=== PATIENT | female | born 1985 | race Caucasian/White ===

== ENCOUNTER 2019-08-12 18:04 | Emergency (ER) | payer MEDICAID ==
[~2019-08-12] VITALS: Ht 165.1 cm; Wt 88.0 kg
[2019-08-12 18:24] VITALS: BP 116/77
--- NOTE | 2019-08-12 18:28 | NUR ---
PT TO RESTROOM
--- NOTE | 2019-08-12 19:06 | NUR ---
RONA ARIZA WITH PT
[2019-08-12] MEDS ORDERED: ALBUTEROL SULFATE/IPRATROPIU 3 ML SOL IH ONE (19:10)
[2019-08-12] MEDS ORDERED: DEXAMETHASONE 10 MG/ML VIAL IM ONE (19:10)
--- NOTE | 2019-08-12 19:13 | NUR ---
INFLUENZA SWAB COLLECTED
--- NOTE | 2019-08-12 19:18 | NUR ---
34 Y/O F C/O COUGHING AND VAGINAL DISCHARGE X1 DAY. PT STATES SHE HAS A SORE THROAT WITH COUGHING. LUNG SOUNDS CLEAR THROUGHOUT, THROAT IS NOT RED, NO SWELLING OR DRAINAGE. PT STATES SHE HAS VAGINAL DISCHARGE THAT STARTED X1 DAY WELL. PT POSITIONED FOR COMFORT. MANNY
--- NOTE | 2019-08-12 19:22 | NUR ---
Respiratory Therapist at bedside for respiratory intervention.
--- NOTE | 2019-08-12 19:24 | NUR ---
RT AT BEDSIDE PERFORMING BREATHING TREATMENT.
--- NOTE | 2019-08-12 19:57 | NUR ---
PT STATES EASIER WORK OF BREATHING S/P BREATHING TREATMENT. LUNG URIAS CLEAR THROUGHOUT UPON AUSCULTATION. RR EVEN AND UNLABORED.
[2019-08-12 20:30] VITALS: BP 116/77
--- NOTE | 2019-08-12 20:31 | NUR ---
Patient discharged with v/s stable. Written and verbal after care instructions given and explained. Patient alert, oriented and verbalized understanding of instructions. Ambulatory with steady gait. All questions addressed prior to discharge. ID band removed. Patient advised to follow up with PMD. Rx of TAMIFLU, TESSALON PERLES, METRONIDAZOLE, MEDROL DESEPAK given. Patient educated on indication of medication including possible reaction and side effects. Opportunity to ask questions provided and answered.
== END 2019-08-12 20:31 | disposition home or self-care (01) ==
LOC: MED 18:04
DX: N76.0 Acute vaginitis (principal); B96.89 Other specified bacterial agents as the cause of diseases classified elsewhere; J06.9 Acute upper respiratory infection, unspecified; J45.909 Unspecified asthma, uncomplicated; Z98.890 Other specified postprocedural states
CPT/HCPCS: 81002; 81025; 87070; 87205; 87210; 87804; 96372; 99283; J1100; J7620